=== PATIENT | female | born 1980 | race Two or more races ===

== ENCOUNTER 2020-02-18 14:17 | Emergency (ER) | payer MEDICAID ==
[~2020-02-18] VITALS: Ht 157.5 cm; Wt 83.5 kg
[~2020-02-18 14:17] MED LIST: ALBUTEROL SULF8.5 GM INH; PREDNISONE20 MG ORAL; PROMETHAZINE-C118 M1 ORAL; ZITHROMAX250 MG ORAL
[2020-02-18 14:26] VITALS: BP 106/69
--- NOTE | 2020-02-18 14:26 | NUR ---
ED Nurse Note: pt. aaox4. ambulatory walked in to er from home due toright sided back pain onset 1 wk ago. denies trauma or fall. presents with cough. no s/s of acute distress noted at this time
--- NOTE | 2020-02-18 14:47 | Emergency Room Report ---
History of Present Illness General Chief Complaint: Back Pain-No Injury Source: Patient Present Illness HPI Patient is a 39-year-old female who presents for increased cough and low back pain. Patient had onset of symptoms over the past few days. Reports of increased right-sided back pain. Cough is worse with deep breath. Reports having nonproductive cough. Denies any hemoptysis. Denies any leg pain or s welling. Reports having some right lower abdominal pain. Denies any fever. Sick contacts at home with similar symptoms. Had no recent past medical history. Denies being . Allergies: Coded Allergies: No Known Allergies (Unverified , 08/01/18) COVID-19 Screening Contact w/high risk pt: No Experienced COVID-19 symptoms?: Yes COVID-19 Testing performed BUILDING ENGINEER: No Patient History Reviewed Nursing Documentation: PMH: Agreed; PSxH: Agreed Nursing Documentation-PM Past Medical History: No Stated History Review of Systems All Other Systems: negative except mentioned in HPI Physical Exam Vital Signs Date Time Temp Pulse Resp B/P (MAP) Pulse Ox O2 Delivery O2 Flow Rate FiO2 02/18/20 14:26 99.5 94 16 106/69 (81) 99 Room Air Sp02 EP Interpretation: reviewed, normal General Appearance: normal inspection, well appearing, no apparent distress, alert, GCS 15, non-toxic Head: atraumatic ENT: normal ENT inspection, hearing grossly normal, normal voice Neck: normal inspection, full range of motion, supple, no bony tend Respiratory: normal inspection, lungs clear, normal breath sounds, no respiratory distress, no retraction, no wheezing Cardiovascular #1: regular rate, rhythm, no edema Gastrointestinal: normal inspection, normal bowel sounds, non tender, soft, no guarding, no hernia Genitourinary: no CVA tenderness Musculoskeletal: normal inspection, back normal, normal range of motion Neurologic: alert, motor strength/tone normal, ceramic engineer III-XII nml as tested, oriented x3, responsive, speech normal, normal inspection Psychiatric: normal inspection, judgement/insight normal, mood/affect normal Medical Decision Making Last Vital Signs Date Time Temp Pulse Resp B/P (MAP) Pulse Ox O2 Delivery O2 Flow Rate FiO2 02/18/20 14:26 99.5 94 16 106/69 (81) 99 Room Air Jhoan Bailey MD Feb 18, 2020 14:47
[2020-02-18] MEDS ORDERED: PROMETHAZINE-D473 M1 PO (15:01)
[2020-02-18] MEDS ORDERED: ASPIRIN81 MG ORAL (15:01)
[2020-02-18] MEDS ORDERED: ZITHROMAX250 MG ORAL (15:01)
[2020-02-18 15:08] VITALS: BP 112/75
--- NOTE | 2020-02-18 15:08 | NUR ---
ER DISCHARGE NOTE: Patient is cleared to be discharged per ERMD, pt is aox4, on room air, with stable vital signs. pt was given dc and prescription instructions, pt was able to verbalize understanding, pt id band removed. pt is able to ambulate with steady gait. pt took all belongings.
[2020-02-18] MEDS ORDERED: Aspirin Baby 81mg ORAL ONE (15:15)
--- NOTE | 2020-02-18 17:34 | Diagnostic Imaging Report ---
Indication: Shortness of breath Technique: One view of the chest Comparison: none Findings: Infiltrate is seen in the left perihilar region. The right lung and bilateral pleural spaces are clear. Calcified granuloma is seen on the left. The heart size is normal. Impression: Left lung infiltrate, likely pneumonia
== END 2020-02-18 15:08 | disposition home or self-care (01) ==
LOC: EMR 14:46
DX: R05 Cough (principal); M54.5 Low back pain; R10.31 Right lower quadrant pain
CPT/HCPCS: 71045; Z7502; 99283